=== PATIENT | male | born 1935 | race Caucasian/White ===

== ENCOUNTER 2021-06-13 08:04 | Inpatient (IN) | payer MEDICARE, BC ==
[2021-06-13 08:22] LABS: #Eosinphils 0.3 thou/uL (0.0-0.7); #Lymphocytes 1.4 thou/uL (1.20-3.40); #Monocytes 0.8 thou/uL (0.11-0.59); #Neutrophils 4.4 thou/uL (1.40-6.50); %Basophils 0.2 % (0.0-1.0); %Eosinophils 4.3 % (0.0-10.0); %Neutrophils 63.5 % (42.0-75.0); Hemoglobin 15.7 g/dL (14.0-18.0); Mean Corpuscular HGB CONC 32.2 g/dL (32.0-36.0); Mean Corpuscular Hemoglobin 30.3 pg (27.0-31.0); Mean Platelet Volume 7.2 fL (7.4-10.4); Platelet Count 194 thou/uL (130-400); Red Blood Cell (RBC) Count 5.17 mill/uL (4.70-6.10)
[2021-06-13 08:34] LABS: INR-International Normal Ratio 1.2; Prothrombin Time 14.8 sec (12.0-14.7)
[2021-06-13 08:49] LABS: ALT (SGPT) 17 U/L (8-55); AST (SGOT) 21 U/L (5-34); Alkaline Phosphatase 97 U/L (40-110); Anion Gap 12 mmol/L (10-20); BUN (Urea Nitrogen) 18 mg/dL (8.4-25.7); Calc. Creatinine Clearance 0 mL/min (70-130); Carbon Dioxide 29 mmol/L (23-31); Chloride 106 mmol/L (98-107); Globulin 2.7 g/dL (2.4-3.5); Glucose 110 mg/dL (83-110); Potassium 4.5 mmol/L (3.5-5.1); Protein, Total 6.7 g/dL (5.8-8.1); Sodium 142 mmol/L (136-145)
[2021-06-13] MEDS ORDERED: Human Prothrombin Complx(PCC) 2,500 UNIT in Admixture Fee 1 EACH IV SCH (09:15)
[2021-06-13 10:23] LABS: Bilirubin Negative (Negative); Blood, Urine Negative (Negative); Clarity Clear (Clear); Glucose, Urine (Dipstick) Normal (Negative); Ketone, Urine Negative (Negative); Leukocyte Negative Leu/uL (Negative); Nitrite Negative (Negative); Protein, Urine (Dipstick) Negative (Neg-Trace); Specific Gravity, Urine 1.008 (1.002-1.036); Urobilinogen Normal mg/dL (Less than 2); pH, Urine 7.5 (5.0-9.0)
[2021-06-13] MEDS ORDERED: Ondansetron PF 4 MG/2 ML Vial IVP PRN (10:26)
[2021-06-13] MEDS ORDERED: Acetaminophen 325 MG TAB PO PRN (10:26)
[2021-06-13 11:50] LABS: Troponin I 0.022 ng/mL (< 0.028)
[2021-06-13] MEDS: Sodium Chloride 0.9% 1,000 ML IV SCH (14:08)
[2021-06-13 14:19] LABS: SARS-CoV-2 NAA Rapid Test Not Detected (NotDetected)
[2021-06-13 14:38] LABS: Troponin I 0.015 ng/mL (< 0.028)
[2021-06-13] MEDS ORDERED: Labetalol HCl 100 MG/20 ML VIAL SLOW IVP PRN (15:35)
[2021-06-13] MEDS: hydrALAZINE 20 MG/ML VIAL SLOW IVP PRN (21:51)
[2021-06-14 04:10] LABS: #Eosinphils 0.1 thou/uL (0.0-0.7); #Lymphocytes 1.2 thou/uL (1.20-3.40); #Neutrophils 6.3 thou/uL (1.40-6.50); %Basophils 0.1 % (0.0-1.0); %Eosinophils 0.7 % (0.0-10.0); %Lymphocytes 13.5 % (21.0-51.0); %Monocytes 11.6 % (0.0-10.0); %Neutrophils 74.1 % (42.0-75.0); Hemoglobin 15.9 g/dL (14.0-18.0); Mean Corpuscular HGB CONC 31.8 g/dL (32.0-36.0); Mean Corpuscular Hemoglobin 29.5 pg (27.0-31.0); Mean Corpuscular Volume 92.8 fL (78.0-98.0); Mean Platelet Volume 7.4 fL (7.4-10.4); Platelet Count 195 thou/uL (130-400); RBC Distribution Width 12.1 % (11.5-14.5); Red Blood Cell (RBC) Count 5.39 mill/uL (4.70-6.10); White Blood Cell (WBC) Count 8.5 thou/uL (4.8-10.8)
[2021-06-14 04:17] LABS: Hemoglobin A1c 5.8 % (4.0-6.0)
[2021-06-14] MEDS: hydrALAZINE 20 MG/ML VIAL SLOW IVP PRN (04:21)
[2021-06-14 04:28] LABS: Anion Gap 14 mmol/L (10-20); BUN (Urea Nitrogen) 13 mg/dL (8.4-25.7); Calc. Creatinine Clearance 67 mL/min (70-130); Calcium 9.2 mg/dL (7.8-10.44); Carbon Dioxide 23 mmol/L (23-31); Chloride 105 mmol/L (98-107); Cholesterol 105 mg/dl (< 200 Desired); Glucose 113 mg/dL (83-110); HDL Cholesterol 35 mg/dL (>60 Neg Risk); LDL Cholesterol, Calculated 58 mg/dL; Potassium 3.9 mmol/L (3.5-5.1); Sodium 138 mmol/L (136-145); Triglycerides 59 mg/dL (Less than 150)
[2021-06-14] MEDS: Famotidine/PF 20 mg/2ml Vial SLOW IVP SCH (09:40)
[2021-06-14] MEDS: Sodium Chloride 0.9% 1,000 ML IV SCH ×2 (09:42→19:59)
[2021-06-14] MEDS ORDERED: Multivit, Therapeutic 1 TAB PO SCH (10:30)
[2021-06-14] MEDS ORDERED: Cyanocobalamin (Vitamin B-12) 1,000 MCG TAB PO SCH (10:30)
[2021-06-14] MEDS ORDERED: Carvedilol 6.25 MG TAB PO SCH (10:30)
[2021-06-14] MEDS ORDERED: Folic Acid 1 MG TAB PO SCH (10:30)
[2021-06-14] MEDS: Carvedilol 6.25 MG TAB PO SCH (13:10)
[2021-06-14] MEDS: Rosuvastatin 20 MG TAB PO SCH (21:22)
[2021-06-15 03:43] LABS: #Lymphocytes 1.2 thou/uL (1.20-3.40); #Monocytes 1.2 thou/uL (0.11-0.59); #Neutrophils 6.1 thou/uL (1.40-6.50); %Basophils 0.4 % (0.0-1.0); %Eosinophils 0.3 % (0.0-10.0); %Lymphocytes 13.8 % (21.0-51.0); %Monocytes 14.2 % (0.0-10.0); %Neutrophils 71.3 % (42.0-75.0); Hemoglobin 15.9 g/dL (14.0-18.0); Mean Corpuscular HGB CONC 34.1 g/dL (32.0-36.0); Mean Corpuscular Hemoglobin 31.4 pg (27.0-31.0); Mean Corpuscular Volume 92.1 fL (78.0-98.0); Mean Platelet Volume 7.5 fL (7.4-10.4); Platelet Count 169 thou/uL (130-400); RBC Distribution Width 12.1 % (11.5-14.5); Red Blood Cell (RBC) Count 5.06 mill/uL (4.70-6.10); White Blood Cell (WBC) Count 8.5 thou/uL (4.8-10.8)
[2021-06-15 04:02] LABS: Anion Gap 16 mmol/L (10-20); BUN (Urea Nitrogen) 17 mg/dL (8.4-25.7); Calc. Creatinine Clearance 68 mL/min (70-130); Calcium 8.5 mg/dL (7.8-10.44); Carbon Dioxide 18 mmol/L (23-31); Chloride 105 mmol/L (98-107); Glucose 88 mg/dL (83-110); Sodium 135 mmol/L (136-145)
[2021-06-15 04:05] LABS: Phosphorus 3.1 mg/dL (2.3-4.7)
[2021-06-15] MEDS: Carvedilol 6.25 MG TAB PO SCH ×2 (08:13→17:10)
[2021-06-15] MEDS: Multivit, Therapeutic 1 TAB PO SCH (08:13)
[2021-06-15] MEDS: Cyanocobalamin (Vitamin B-12) 1,000 MCG TAB PO SCH (08:13)
[2021-06-15] MEDS: Folic Acid 1 MG TAB PO SCH (08:13)
[2021-06-15] MEDS: Famotidine/PF 20 mg/2ml Vial SLOW IVP SCH (08:25)
[2021-06-15] MEDS: Sodium Chloride 0.9% 1,000 ML IV SCH (15:41)
[2021-06-15] MEDS: Rosuvastatin 20 MG TAB PO SCH (20:47)
[2021-06-16 05:01] LABS: #Eosinphils 0.1 thou/uL (0.0-0.7); #Lymphocytes 1.3 thou/uL (1.20-3.40); #Neutrophils 4.6 thou/uL (1.40-6.50); %Basophils 0.2 % (0.0-1.0); %Eosinophils 1.7 % (0.0-10.0); %Lymphocytes 18.9 % (21.0-51.0); %Neutrophils 65.1 % (42.0-75.0); Hemoglobin 15.3 g/dL (14.0-18.0); Mean Corpuscular HGB CONC 32.7 g/dL (32.0-36.0); Mean Corpuscular Hemoglobin 30.1 pg (27.0-31.0); Mean Platelet Volume 7.5 fL (7.4-10.4); Platelet Count 159 thou/uL (130-400); RBC Distribution Width 11.8 % (11.5-14.5); Red Blood Cell (RBC) Count 5.09 mill/uL (4.70-6.10)
[2021-06-16 05:23] LABS: Anion Gap 13 mmol/L (10-20); BUN (Urea Nitrogen) 21 mg/dL (8.4-25.7); Calc. Creatinine Clearance 69 mL/min (70-130); Calcium 8.3 mg/dL (7.8-10.44); Carbon Dioxide 21 mmol/L (23-31); Chloride 103 mmol/L (98-107); Glucose 91 mg/dL (83-110); Potassium 3.5 mmol/L (3.5-5.1); Sodium 133 mmol/L (136-145)
[2021-06-16] MEDS ORDERED: Electrolyte Replacement Protocol 1 EACH FS SCH (06:15)
[2021-06-16] MEDS ORDERED: Potassium Chloride 20 MEQ TAB PO SCH (07:15)
[2021-06-16] MEDS: Folic Acid 1 MG TAB PO SCH (08:42)
[2021-06-16] MEDS: Carvedilol 25 MG TAB PO SCH ×2 (08:42→16:48)
[2021-06-16] MEDS: Multivit, Therapeutic 1 TAB PO SCH (08:42)
[2021-06-16] MEDS: Cyanocobalamin (Vitamin B-12) 1,000 MCG TAB PO SCH (08:48)
[2021-06-16] MEDS ORDERED: Famotidine 20 MG TAB PO SCH (09:00)
[2021-06-16 09:50] VITALS: BMI 28.0
[2021-06-16 12:04] VITALS: TEMP 99
[2021-06-16 12:32] VITALS: BP 113/85
== END 2021-06-16 17:18 | DRG 64 ==
LOC: SUATTDRO 08:04 → ERS 08:04 → ERHOLD 10:09 → CCU 12:40 → IMCU/EMU 06-14 19:40 → NEURO 06-15 16:58
PROVIDERS: ADMIT Family Medicine; ATTEND Emergency Medicine
PROC: 30283B1 Transfusion of Nonautologous 4-Factor Prothrombin Complex Concentrate into Vein, Percutaneous Approach (ICD-10-PCS; principal; 2021-06-13)
DX: I61.1 Nontraumatic intracerebral hemorrhage in hemisphere, cortical (principal); Z20.822 Contact with and (suspected) exposure to COVID-19; G93.6 Cerebral edema; R47.01 Aphasia; I48.92 Unspecified atrial flutter; G93.49 Other encephalopathy; I48.0 Paroxysmal atrial fibrillation; I25.10 Atherosclerotic heart disease of native coronary artery without angina pectoris; I71.2 Thoracic aortic aneurysm, without rupture; I12.9 Hypertensive chronic kidney disease with stage 1 through stage 4 chronic kidney disease, or unspecified chronic kidney disease; E78.5 Hyperlipidemia, unspecified; I08.3 Combined rheumatic disorders of mitral, aortic and tricuspid valves; R73.03 Prediabetes; R13.10 Dysphagia, unspecified; N18.2 Chronic kidney disease, stage 2 (mild); Z79.01 Long term (current) use of anticoagulants; Z88.5 Allergy status to narcotic agent; Z88.0 Allergy status to penicillin; I25.2 Old myocardial infarction; Z95.5 Presence of coronary angioplasty implant and graft; Z82.49 Family history of ischemic heart disease and other diseases of the circulatory system; Z90.89 Acquired absence of other organs; Z85.89 Personal history of malignant neoplasm of other organs and systems; Z79.899 Other long term (current) drug therapy
CPT/HCPCS: 36415; 36416; 70450; 71045; 80048; 80053; 80061; 81003; 83036; 83735; 83880; 84100; 84443; 84484; 85025; 85610; 85730; 86850; 86900; 86901; 93005; 93306; 93880; 94760; 95816; 95819; 95957; 96374; J0360; J7050; J7168; S0028; U0002

== ENCOUNTER 2022-11-02 12:58 | Outpatient (CLI) | payer MEDICARE, BC | END 2022-11-02 12:59 | disposition home or self-care (01) | LOC: BICCT 12:58 | PROVIDERS: ATTEND Family Medicine | DX: R19.7 Diarrhea, unspecified (principal); I72.8 Aneurysm of other specified arteries; K63.89 Other specified diseases of intestine | CPT/HCPCS: 74177; 82565 ==